=== PATIENT | male | born 1970 | race Caucasian/White ===

== ENCOUNTER 2022-04-05 09:54 | Outpatient (CLI) | payer BC | END 2022-04-05 09:55 | disposition home or self-care (01) | LOC: CSHLAB 09:54 | PROVIDERS: ATTEND Surgery | DX: Z20.822 Contact with and (suspected) exposure to COVID-19 (principal); D12.4 Benign neoplasm of descending colon | CPT/HCPCS: 87811 ==

== ENCOUNTER 2022-04-07 05:45 | Day surgery (SDC) | payer BC ==
[2022-04-01 10:06] VITALS: BMI 23.0
[2022-04-07] MEDS ORDERED: PROPOFOL 40 ML ONE (07:04)
[2022-04-07] MEDS ORDERED: Lidocaine 1% PF 5 ML VIAL ONE (07:05)
[2022-04-07] MEDS ORDERED: PROPOFOL 20 ML ONE ×2 (07:42→07:57)
== END 2022-04-07 08:50 | disposition home or self-care (01) ==
LOC: CSHSDC 05:45
PROVIDERS: ATTEND Surgery
PROC: 0DBE8ZZ Excision of Large Intestine, Via Natural or Artificial Opening Endoscopic (ICD-10-PCS; principal; 2022-04-07)
PROC: 0DBK8ZZ Excision of Ascending Colon, Via Natural or Artificial Opening Endoscopic (ICD-10-PCS; principal; 2022-04-07)
PROC: 0DBL8ZZ Excision of Transverse Colon, Via Natural or Artificial Opening Endoscopic (ICD-10-PCS; principal; 2022-04-07)
PROC: 0DBN8ZZ Excision of Sigmoid Colon, Via Natural or Artificial Opening Endoscopic (ICD-10-PCS; principal; 2022-04-07)
DX: Z12.11 Encounter for screening for malignant neoplasm of colon (principal); D12.2 Benign neoplasm of ascending colon; D12.3 Benign neoplasm of transverse colon; D12.4 Benign neoplasm of descending colon; D12.5 Benign neoplasm of sigmoid colon; D12.6 Benign neoplasm of colon, unspecified; K64.1 Second degree hemorrhoids; E78.5 Hyperlipidemia, unspecified; N52.9 Male erectile dysfunction, unspecified; Z86.010 Personal history of colon polyps; Z79.899 Other long term (current) drug therapy; Z20.822 Contact with and (suspected) exposure to COVID-19; Z87.891 Personal history of nicotine dependence; Z90.49 Acquired absence of other specified parts of digestive tract; Z98.890 Other specified postprocedural states
CPT/HCPCS: 88305; J2704